=== PATIENT | female | born 1990 | race Hispanic/Latino ===

== ENCOUNTER 2017-02-11 13:53 | Emergency (ER) | payer BC, MEDICAID, OTHER ==
[2017-02-11 13:54] VITALS: BMI 26.6
[2017-02-11 14:15] VITALS: BP 102/71; PULSE 93; O2SAT 98
[2017-02-11 14:18] VITALS: RESP 18
[2017-02-11 15:10] VITALS: TEMP 98.3
--- NOTE | 2017-02-11 15:10 | ED PDOC ---
Arrival/HPI - General Chief Complaint: Cough, Cold, Congestion Time Seen by Provider: 02/11/17 14:37 Historian: Patient - History of Present Illness Narrative History of Present Illness (Text): 02/11/17 15:16 Patient reports one week history of cough, cold symptoms, body aches, tactile fever. Otherwise: (-) SOB, (-) chest pain, (-) N/V/D, (-) abdominal pain, (-) flank pain, (-) urinary symptoms, (-) recent travel, (-) sick contacts. PMD none Past Medical History - Provider Review Nursing Documentation Reviewed: Yes - Infectious Disease Hx of Infectious Diseases: None - Tetanus Immunization Tetanus Immunization: Unknown - Cardiac Hx Cardiac Disorders: Yes Other/Comment: " PER MY AUNT MY HEART DOESN'T PUMP BACK TO MY HEART" - Pulmonary Hx Tuberculosis: No - Neurological HX Cerebrovascular Accident: No - Hematological/Oncological Hx Cancer: No - Psychiatric Hx Depression: Yes Hx Substance Use: No - Anesthesia Hx Anesthesia: No Hx Anesthesia Reactions: No Hx Malignant Hyperthermia: No - Suicidal Assessment Feels Threatened In Home Enviroment: No Family/Social History - Physician Review Nursing Documentation Reviewed: Yes Family/Social History: No Known Family HX Smoking Status: Heavy Smoker > 10 Cigarettes Daily Hx Alcohol Use: No Hx Substance Use: No Allergies/Home Meds Allergies/Adverse Reactions: Allergies No Known Allergies Allergy (Verified 02/11/17 14:15) Review of Systems - Review of Systems Constitutional: Normal, Fatigue, Fevers. absent: Weight Change ENT: Normal. absent: Hearing Changes, Tinnitus Respiratory: Normal, Cough. absent: SOB Cardiovascular: Normal. absent: Chest Pain, Palpitations Musculoskeletal: Normal. absent: Arthralgias, Back Pain Skin: Normal. absent: Rash, Pruritis Physical Exam - Physical Exam Narrative Physical Exam (Text): 02/11/17 15:17 GENERAL APPEARANCE: Patient is awake, alert, oriented x 3, in no acute distress. SKIN: Warm, dry; (-) cyanosis, (-) rash. (-) Decubitus Ulcer EYES: (-) conjunctival pallor, (-) scleral icterus, (-) conjunctival hemorrhage. ENMT: Mucous membranes moist. TMs: (-) erythema. Airway patent: (-) stridor. Pharynx: (-) erythema, (-) exudate. NECK: (-) tenderness, (-) stiffness, (-) meningismus, (-) lymphadenopathy. CHEST AND RESPIRATORY: (-) accessory muscle use. Lungs: (-) rales, (-) rhonchi, (-) wheezes, (-) rub; breath sounds equal bilaterally. HEART AND CARDIOVASCULAR: (-) irregularity; (-) murmur, (-) gallop, (-) rub. ABDOMEN AND GI: Soft; (-) tenderness, (-) guarding; (-) organomegaly; (-) mass ; (-) CVA tenderness. EXTREMITIES: (-) deformity; (-) cellulitis, (-) lymphangitis; (-) subungual hemorrhage; (-) edema. NEURO AND PSYCH: Mental status as above; (-) focal findings. Vital Signs Temp Pulse Resp BP Pulse Ox 02/11/17 15:07 98.3 F 02/11/17 14:17 98.2 F 93 H 18 102/71 98 02/11/17 14:09 98.2 F 93 H 19 102/71 98 Medical Decision Making ED Course and Treatment: 02/11/17 15:06 26 yo F presents with 1 week h/o cough, bodyaches, cold symptoms, likely flu. PE normal. Based on history and exam, plan will be for outpatient follow-up. Prescription provided. Patient states she fully agrees with and understands discharge instructions. States that she agrees with the plan and disposition. Verbalized and repeated discharge instructions and plan. I have given the patient opportunity to ask any additional questions. Follow up with referral physician in 1-2 days without fail. Advised to take medication as prescribed. Return to the emergency room at any time for any new or worsening symptoms. - PA / FISHER LAMPARA NET / Resident Statement MD/DO has reviewed & agrees with the documentation as recorded. Disposition/Present on Arrival - Present on Arrival Any Indicators Present on Arrival: No History of DVT/PE: No History of Uncontrolled Diabetes: No Urinary Catheter: No History of Decub. Ulcer: No History Surgical Site Infection Following: None - Disposition Have Diagnosis and Disposition been Completed?: Yes Diagnosis: Viral illness Disposition: HOME/ ROUTINE Disposition Time: 15:00 Patient Plan: Discharge Condition: GOOD Discharge Instructions (ExitCare): Viral Syndrome (ED) Print Language: WELSH Additional Instructions: Thank you for letting us take care of you today. You were treated for viral illness likely flu. The emergency medical care you received today was directed at your acute symptoms. If you were prescribed any medication, please fill it and take as directed. It may take several days for your symptoms to resolve. Return to the Emergency Department if your symptoms worsen, do not improve, or if you have any other problems. Please contact referral doctor provided in 2 days for re-evaluation and follow up. Bring any paperwork you were given at discharge with you along with any medications you are taking to your follow up visit. Our treatment cannot replace ongoing medical care by a primary care provider (PCP) outside of the emergency department. Thank you for allowing the [facility] team to be part of your care today. Prescriptions: Guaifenesin [Cough Control] 400 mg PO Q6 #400 liquid Ibuprofen [Motrin] 600 mg PO Q6H #20 tab Referrals: PCP,HAYDEE [Primary Care Provider] - Follow up with primary Marielena Muse MD [Staff Provider] - Follow up with primary Forms: WORK NOTE
== END 2017-02-11 15:13 | disposition home or self-care (01) ==
LOC: ED 13:53
DX: B34.9 Viral infection, unspecified (principal); F17.210 Nicotine dependence, cigarettes, uncomplicated

== ENCOUNTER 2017-02-14 14:58 | Emergency (ER) | payer SELFPAY ==
[2017-02-14 15:18] VITALS: TEMP 98; BMI 20.9
[2017-02-14] MEDS ORDERED: Sodium Chloride 0.9% 1,000 ML IV STA (16:17)
--- NOTE | 2017-02-14 16:20 | ED PDOC ---
Arrival/HPI - General Chief Complaint: Syncope Time Seen by Provider: 02/14/17 15:06 Historian: Patient - History of Present Illness Narrative History of Present Illness (Text): 02/14/17 16:17 26 year old female who denies past medical history presents to the emergency department after syncopal episode at work prior to arrival. Patient states she was standing at work when she passed out, witnessed by coworker. She reports she was dizzy before coming to work today. She also reports recent body aches over the past week which are improving. She says she has had a cough during that time which is persisting. Denies nausea, vomiting, chest pain, shortness of breath, abdominal pain, focal weakness, or urinary changes. Time/Duration: Prior to Arrival Symptom Onset: Sudden Symptom Course: Resolved Modifying Factors (Text): None Associated Symptoms (Text): None Past Medical History - Provider Review Nursing Documentation Reviewed: Yes - Infectious Disease Hx of Infectious Diseases: None - Tetanus Immunization Tetanus Immunization: Unknown - Cardiac Hx Cardiac Disorders: Yes Other/Comment: " PER MY AUNT MY HEART DOESN'T PUMP BACK TO MY HEART" - Pulmonary Hx Tuberculosis: No - Neurological HX Cerebrovascular Accident: No - Hematological/Oncological Hx Cancer: No - Psychiatric Hx Depression: Yes Hx Substance Use: No - Anesthesia Hx Anesthesia: No Hx Anesthesia Reactions: No Hx Malignant Hyperthermia: No - Suicidal Assessment Feels Threatened In Home Enviroment: No Family/Social History - Physician Review Nursing Documentation Reviewed: Yes Family/Social History: Unknown Family HX Smoking Status: Heavy Smoker > 10 Cigarettes Daily Hx Alcohol Use: No Hx Substance Use: No Allergies/Home Meds Allergies/Adverse Reactions: Allergies No Known Allergies Allergy (Verified 02/14/17 15:21) Review of Systems - Physician Review All systems were reviewed & negative as marked: Yes - Review of Systems Eyes: absent: Vision Changes ENT: absent: Hearing Changes Respiratory: Cough. absent: SOB Cardiovascular: Syncope. absent: Chest Pain Gastrointestinal: absent: Abdominal Pain, Diarrhea, Nausea, Vomiting Genitourinary Female: absent: Dysuria, Frequency, Hematuria Musculoskeletal: absent: Back Pain Skin: absent: Rash Neurological: absent: Dizziness, Focal Weakness Endocrine: absent: Diaphoresis Psychiatric: absent: Depression Physical Exam Vital Signs Reviewed: Yes Vital Signs Temp Pulse Resp BP Pulse Ox 02/14/17 17:12 94 H 24 106/69 100 02/14/17 16:12 76 18 116/69 100 02/14/17 15:17 98.0 F 83 18 118/77 100 Temperature: Afebrile Blood Pressure: Normal Pulse: Regular Respiratory Rate: Normal Appearance: Positive for: Well-Appearing, Non-Toxic, Comfortable Pain Distress: None Mental Status: Positive for: Alert and Oriented X 3 - Systems Exam Head: Present: Atraumatic, Normocephalic Pupils: Present: PERRL Extroacular Muscles: Present: EOMI Conjunctiva: Present: Normal Mouth: Present: Moist Mucous Membranes Pharnyx: Present: Normal. No: ERYTHEMA, EXUDATE Neck: Present: Normal Range of Motion Respiratory/Chest: Present: Clear to Auscultation, Good Air Exchange. No: Respiratory Distress, Accessory Muscle Use Cardiovascular: Present: Regular Rate and Rhythm, Normal S1, S2. No: Murmurs Abdomen: Present: Normal Bowel Sounds. No: Tenderness, Distention, Peritoneal Signs Back: Present: Normal Inspection Upper Extremity: Present: Normal Inspection. No: Cyanosis, Edema Lower Extremity: Present: Normal Inspection. No: Edema Neurological: Present: GCS=15, CN II-XII Intact, Speech Normal, Motor Func Grossly Intact, Normal Sensory Function, Normal Cerebellar Funct, Norm Deep Tendon Reflexes, Memory Normal, Normal 2Pt Descrimination Skin: Present: Warm, Dry, Normal Color. No: Rashes Psychiatric: Present: Alert, Oriented x 3, Normal Insight, Normal Concentration Medical Decision Making ED Course and Treatment: Impression: 26 year old female who denies past medical history presents to the emergency department after syncopal episode at work prior to arrival. Differential Diagnosis included but are not limited to: Dehydration vs vasovagal vs less likely cardiogenic Plan: -- Labs -- IV fluids -- Reassess and disposition Prior Visits: Notes and results from previous visits were reviewed. Patient last seen in the ED on 02/11/17 for cold symptoms and discharged home. Progress Notes: Exam, vitals, and EKG are unremarkable. Labs with mild leukcytosis but no focalities. Will d/c home to f/u in the medical clinic. Will place on z-pack, given persistent cough - for bronchitis. - Lab Interpretations Lab Results: 02/14/17 16:30 02/14/17 16:30 Lab Results 02/14/17 16:30: WBC 12.6 H, RBC 4.37, Hgb 14.4, Hct 41.4, MCV 94.7, MCH 33.0, MCHC 34.8, RDW 12.9, Plt Count 330, MPV 9.3, Gran % 82.4 H, Lymph % (Auto) 13.2 L, [place] % (Auto) 4.0, Eos % (Auto) 0.2 L, Baso % (Auto) 0.2, Gran # 10.41 H, Lymph # 1.7, [place] # 0.5, Eos # 0.0, Baso # 0.03, Sodium 138, Potassium 4.3, Chloride 100, Carbon Dioxide 29, Anion Gap 13, BUN 12, Creatinine 0.7, Est GFR ( Amer) > 60, Est GFR (Non-Af Amer) > 60, Random Glucose 90, Calcium 9.6, Total Bilirubin 0.9, AST 29, ALT 28, Alkaline Phosphatase 59, Total Protein 8.3 , Albumin 4.6, Globulin 3.7, Albumin/Globulin Ratio 1.2, Lipase 72 02/14/17 16:15: Urine Color Yellow, Urine Appearance Sl cloudy, Urine pH 6.0, Ur Specific [place] >= 1.030, Urine Protein 30 H, Urine Glucose (UA) Negative, Urine Ketones Negative, Urine Blood Large H, Urine Nitrate Negative, Urine Bilirubin Negative, Urine Urobilinogen 0.2, Ur Leukocyte Esterase Negative, Urine RBC 20 - 25, Urine WBC 1 - 3, Ur Epithelial Cells 6 - 8, Amorphous Sediment Few, Urine Bacteria Mod, Urine HCG, Qual Negative 02/14/17 16:02: POC Glucose (mg/dL) 87 - EKG Interpretation EKG Interpretation (Text): EKG shows NSR at [address]/T changes, normal intervals, normal axis. Interpreted by ED Physician: Yes Type: 12 lead EKG - Medication Orders Current Medication Orders: Discontinued Medications Sodium Chloride (Sodium Chloride 0.9%) 1,000 mls @ 999 mls/hr IV .Q1H1M STA Stop: 02/14/17 17:17 Last Admin: 02/14/17 16:34 Dose: 999 MLS/HR eMAR Start Stop Document 02/14/17 16:34 MMA (Rec: 02/14/17 16:34 [facility] [id number]) Intravenous Solution Start Date 02/14/17 Start Time 16:34 End Date 02/14/17 End time 17:34 Total Infusion Time 60 - Scribe Statement The provider has reviewed the documentation as recorded by the Gulshan Mendoza Provider Scribe Attestation: All medical record entries made by the Scribe were at my direction and personally dictated by me. I have reviewed the chart and agree that the record accurately reflects my personal performance of the history, physical exam, medical decision making, and the department course for this patient. I have also personally directed, reviewed, and agree with the discharge instructions and disposition. Disposition/Present on Arrival - Present on Arrival Any Indicators Present on Arrival: No History of DVT/PE: No History of Uncontrolled Diabetes: No Urinary Catheter: No History of Decub. Ulcer: No History Surgical Site Infection Following: None - Disposition Have Diagnosis and Disposition been Completed?: Yes Diagnosis: Syncope, Bronchitis Disposition: HOME/ ROUTINE Disposition Time: 18:15 Patient Plan: Discharge Patient Problems: Current Active Problems Problem Status Diagnosed Syncope Acute Condition: GOOD Discharge Instructions (ExitCare): Syncope (ED), Acute Bronchitis (ED) Additional Instructions: Drink plenty of fluids. Follow up with the medical clinic. Return to the emergency department if any new concerning symptoms. Prescriptions: Azithromycin [Zithromax] 2 tab PO DAILY #6 tab Referrals: [facility] [place] [Outside] - Follow up with primary Forms: WORK NOTE
[2017-02-14 16:26] LABS: URINE BILIRUBIN NEGATIVE (NEGATIVE); URINE BLOOD LARGE (NEGATIVE); URINE GLUCOSE (UA) NEGATIVE (NEGATIVE); URINE KETONE NEGATIVE (NEGATIVE); URINE LEUKOCYTE ESTERASE NEGATIVE Leu/uL (NEGATIVE); URINE PROTEIN 30 mg/dL (<30 mg/dL); URINE UROBILINOGEN 0.2 E.U./dL (<1 E.U./dL)
[2017-02-14 16:27] LABS: URINE COLOR YELLOW (YELLOW)
[2017-02-14 16:28] LABS: URINE APPEARANCE SL CLOUDY (CLEAR)
[2017-02-14 16:46] LABS: URINE BACTERIA MOD (NEG); URINE RBC 20 - 25 /hpf (0-2)
[2017-02-14 16:47] LABS: URINE AMORPHOUS SEDIMENT FEW
[2017-02-14 16:49] LABS: ADD MANUAL DIFF? NO
[2017-02-14 16:52] LABS: BASO # 0.03 K/mm3 (0.0-2.0); BASO % 0.2 % (0.0-3.0); EOS % 0.2 % (1.5-5.0); GRAN # 10.41 (1.4-6.5); GRAN % 82.4 % (50.0-68.0); HEMATOCRIT 41.4 % (36.0-48.0); LYMPH # 1.7 (1.2-3.4); LYMPH % 13.2 % (22.0-35.0); MEAN CELL VOLUME 94.7 fL (80.0-105.0); MEAN CORPUSCULAR HGB CONC 34.8 g/dl (31.0-37.0); MEAN PLATELET VOLUME 9.3 fl (7.0-11.0); MONO # 0.5 (0.1-0.6); PLATELET COUNT 330 10^3/uL (120.0-450.0); RED CELL DISTRIBUTION WIDTH 12.9 % (11.5-14.5); WHITE BLOOD COUNT 12.6 10^3/ul (4.5-11.0)
[2017-02-14 17:02] LABS: ALB/GLOB RATIO 1.2 (1.1-1.8); ALKALINE PHOSPHATASE 59 U/L (38-133); ALT/SGPT 28 U/L (7-56); AST/SGOT 29 U/L (15-39); BILIRUBIN,TOTAL 0.9 mg/dL (0.2-1.3); BLOOD UREA NITROGEN 12 mg/dL (7-21); CALCIUM 9.6 mg/dL (8.4-10.5); CARBON DIOXIDE 29 mmol/L (21-33); CHLORIDE 100 mmol/L (98-107); GFR AFRICAN-AMERICAN > 60; GLUCOSE,RANDOM 90 mg/dL (70-110); LIPASE 72 U/L (23-300); POTASSIUM 4.3 mmol/L (3.6-5.0); SODIUM 138 mmol/L (132-148); TOTAL PROTEIN 8.3 g/dL (5.8-8.3)
[2017-02-14 18:26] VITALS: BP 108/61; PULSE 88; RESP 16; O2SAT 99
--- NOTE | 2017-02-14 18:44 | CARD ---
APPROVED REPORT EKG Measurement Heart [id number] <Conclusion> Poor data quality, interpretation may be adversely affected Sinus rhythm with marked sinus arrhythmia Otherwise normal ECG
== END 2017-02-14 18:27 | disposition home or self-care (01) ==
LOC: ED 14:58
DX: J40 Bronchitis, not specified as acute or chronic (principal); R55 Syncope and collapse; F17.210 Nicotine dependence, cigarettes, uncomplicated
CPT/HCPCS: 80053; 81001; 82948; 83690; 84703; 85025; 93005; 96360; 99285; J7040

== ENCOUNTER 2017-02-18 15:52 | Emergency (ER) | payer MEDICAID ==
[2017-02-18 15:53] VITALS: BMI 20.9
--- NOTE | 2017-02-18 16:20 | ED PDOC ---
Arrival/HPI - General Chief Complaint: Dizziness/Lightheaded Time Seen by Provider: 02/18/17 16:07 Historian: Patient - History of Present Illness Narrative History of Present Illness (Text): 02/18/17 16:24 26 year old female who denies past medical history presents to the emergency department with near syncopal episode while at work today. Denies other complaints at this time. Time/Duration: 24 hours Symptom Onset: Gradual Symptom Course: Unchanged Modifying Factors (Text): None Associated Symptoms (Text): None Past Medical History - Provider Review Nursing Documentation Reviewed: Yes - Infectious Disease Hx of Infectious Diseases: None - Tetanus Immunization Tetanus Immunization: Unknown - Cardiac Hx Cardiac Disorders: No - Pulmonary Hx Respiratory Disorders: No Hx Tuberculosis: No - Neurological Hx Neurological Disorder: Yes HX Cerebrovascular Accident: No Hx Syncope: Yes - HEENT Hx HEENT Disorder: No - Renal Hx Renal Disorder: No - Endocrine/Metabolic Hx Endocrine Disorders: No - Hematological/Oncological Hx Blood Disorders: No Hx Cancer: No - Integumentary Hx Dermatological Disorder: No - Musculoskeletal/Rheumatological Hx Musculoskeletal Disorders: No - Gastrointestinal Hx Gastrointestinal Disorders: No - Genitourinary/Gynecological Hx Genitourinary Disorders: No - Psychiatric Hx Psychophysiologic Disorder: Yes Hx Depression: Yes Hx Substance Use: No - Anesthesia Hx Anesthesia: No Hx Anesthesia Reactions: No Hx Malignant Hyperthermia: No - Suicidal Assessment Feels Threatened In Home Enviroment: No Family/Social History - Physician Review Nursing Documentation Reviewed: Yes Family/Social History: Unknown Family HX Smoking Status: Heavy Smoker > 10 Cigarettes Daily Hx Alcohol Use: No Hx Substance Use: No Allergies/Home Meds Allergies/Adverse Reactions: Allergies FISH Allergy (Verified 02/18/17 16:11) ANAPHYLAXIS Home Medications: Home Meds Medication Instructions Recorded Confirmed No Known Home Med 02/18/17 02/18/17 Review of Systems - Physician Review All systems were reviewed & negative as marked: Yes Physical Exam - Physical Exam Narrative Physical Exam (Text): - Review of Systems Constitutional: Normal. absent: Fatigue, Weight Change, Fevers Eyes: Normal ENT: Normal Respiratory: Normal absent: SOB, Cough, Sputum Cardiovascular: Near Syncope absent: Chest pain, Palpitations Gastrointestinal: Normal absent: Abdominal pain, Diarrhea, Nausea, Vomiting Genitourinary: Normal. absent: Dysuria, Frequency, Hematuria Musculoskeletal: Normal. absent: Arthralgias, Back Pain, Neck Pain Skin: Normal Neurological: Normal absent: Focal Weakness Endocrine: Normal Hemo/Lymphatic: Normal Psychiatric: Normal - Physical exam Patient appears age appropriate, speaking full sentences without difficulty - Systems Exam Head: Present: Atraumatic, Normocephalic Pupils: Present: PERRL Extraocular Muscles: Present: EOMI Conjunctiva: Present: Normal Mouth: Present: Moist Mucous Membranes Neck: Present: Normal Range of Motion. No: MIDLINE TENDERNESS, Paraspinal Tenderness Respiratory/Chest: Present: Clear to Auscultation, Good Air Exchange. No: Respiratory Distress, Accessory Muscle Use, Tachypneic Cardiovascular: Present: Regular Rate and Rhythm, Normal S1, S2, Peripheral Pulses Present. No: Murmurs Abdomen: Present: Normal Bowel Sounds, No: Tenderness, Peritoneal Signs, Rebound, Guarding, Distention Back: Present: Normal Inspection. No: Midline Tenderness, Paraspinal Tenderness Upper Extremity: Present: Normal Inspection. No: Cyanosis, Edema Lower Extremity: Present: Normal Inspection. No: Edema Neurological: Present: GCS=15, Speech Normal, cranial nerves II through XII fully intact with no cerebellar abnormality, neuro-sensory fully intact. No focal neurological deficits. Skin: Present: Warm, Dry, Normal Color. No: Rashes Lymphatic: Present: OX3, NI, NC Psychiatric: Present: Alert, Oriented x 3, Normal Insight, Normal Concentration Vital Signs Reviewed: Yes Vital Signs Temp Pulse Resp BP Pulse Ox 02/18/17 19:11 98.6 F 81 18 114/63 100 02/18/17 16:11 99.2 F 89 15 113/70 99 Temperature: Afebrile Blood Pressure: Normal Pulse: Regular Respiratory Rate: Normal Appearance: Positive for: Well-Appearing, Non-Toxic, Comfortable Pain Distress: None Mental Status: Positive for: Alert and Oriented X 3 Finger Stick Blood Glucose: 86 - Systems Exam Neurological: Present: Motor Func Grossly Intact, Normal Sensory Function, Normal Cerebellar Funct, Norm Deep Tendon Reflexes Medical Decision Making ED Course and Treatment: Impression: 26 year old female who denies past medical history presents to the emergency department with near syncopal episode while at work today. On physical exam, patient has no acute findings. Differential Diagnosis include but are not limited to: near syncope, dehydration Plan: -- CT Head, EKG -- Labs -- Reassess and disposition Prior Visits: Notes and results from previous visits were reviewed. Patient last seen in the ED on 02/14/17 for syncope and discharged home. Progress Notes: Patient is aware that if there are no acute findings on workup in the ER, she will need to follow up with histology teacher and neurologist outpatient. EKG shows NSR at [address]-segment elevations, normal intervals. with no prior for comparison. Interpreted by me. EXAM: CT Head Without Intravenous Contrast IMPRESSION: Normal head/brain CT. Dictated and Authenticated by: Nicki Martinez MD 02/18/2017 6:09 PM Eastern Time ([place] & [place]) 02/18/17 19:17 On reevaluation, patient states that she feels much better, denies any complaints. Patient is ambulating in the emergency department with steady gait. Patient has no focal neurological deficits on reexamination. Patient states that she felt comfortable being discharged home with outpatient follow-up. Pt states she understands to return to the ER right away for new or worsening symptoms or for inability to f/u with PMD or specialist as instructed. Patient states that she fully agrees with and understands discharge instructions. States that she agrees with the plan and disposition. Verbalized and repeated discharge instructions and plan. I have given the patient opportunity to ask any additional questions. - Lab Interpretations Lab Results: 02/18/17 16:32 02/18/17 16:32 Lab Results 02/18/17 16:32: WBC 9.5 D, RBC 4.09, Hgb 13.6, Hct 38.7, MCV 94.6, MCH 33.3, MCHC 35.1, RDW 12.9, Plt Count 323, MPV 9.4, Gran % 68.4 H, Lymph % (Auto) 25.0 , [place] % (Auto) 5.6, Eos % (Auto) 0.6 L, Baso % (Auto) 0.4, Gran # 6.48, Lymph # 2.4, [place] # 0.5, Eos # 0.1, Baso # 0.04, Sodium 137, Potassium 4.1, Chloride 100, Carbon Dioxide 29, Anion Gap 12, BUN 14, Creatinine 0.7, Est GFR ( Amer) > 60, Est GFR (Non-Af Amer) > 60, Random Glucose 86, Calcium 9.2, Total Bilirubin 0.8, AST 24, ALT 32, Alkaline Phosphatase 58, Total Protein 7.6, Albumin 4.3, Globulin 3.4, Albumin/Globulin Ratio 1.3 - RAD Interpretation Radiology Orders: 02/18/17 16:24 HEAD W/O CONTRAST [CT] Stat Sales Professional: Radiologist - EKG Interpretation Interpreted by ED Physician: Yes Type: 12 lead EKG - Medication Orders Current Medication Orders: Discontinued Medications Sodium Chloride (Sodium Chloride 0.9%) 1,000 mls @ 1,000 mls/hr IV .Q1H STA Stop: 02/18/17 17:23 Last Admin: 02/18/17 16:33 Dose: 1,000 MLS/HR eMAR Start Stop Document 02/18/17 16:33 SE (Rec: 02/18/17 16:33 SE [id number]) Intravenous Solution Start Date 02/18/17 Start Time 16:33 - Scribe Statement The provider has reviewed the documentation as recorded by the Gulshan Mendoza Provider Scribe Attestation: All medical record entries made by the Gulshan were at my direction and personally dictated by me. I have reviewed the chart and agree that the record accurately reflects my personal performance of the history, physical exam, medical decision making, and the department course for this patient. I have also personally directed, reviewed, and agree with the discharge instructions and disposition. Disposition/Present on Arrival - Present on Arrival Any Indicators Present on Arrival: No History of DVT/PE: No History of Uncontrolled Diabetes: No Urinary Catheter: No History of Decub. Ulcer: No History Surgical Site Infection Following: None - Disposition Have Diagnosis and Disposition been Completed?: Yes Diagnosis: Near syncope Disposition: HOME/ ROUTINE Disposition Time: 19:23 Patient Plan: Discharge Condition: GOOD Discharge Instructions (ExitCare): Near Syncope (ED) Additional Instructions: PLEASE RETURN TO THE EMERGENCY DEPARTMENT FOR NEW OR WORSENING SYMPTOMS. RETURN RIGHT AWAY IF YOU CANNOT FOLLOW UP WITH YOUR PRIMARY CARE DOCTOR, CLINIC, OR SPECIALIST IN 1-2 DAYS. Referrals: PCP,NO [Primary Care Provider] - Follow up with primary Mendez Flynn MD [Staff Provider] - Follow up with primary Gema Lew MD [Staff Provider] - Follow up with primary
[2017-02-18] MEDS ORDERED: Sodium Chloride 0.9% 1,000 ML IV STA (16:24)
[2017-02-18 16:38] LABS: ADD MANUAL DIFF? NO
[2017-02-18 16:41] LABS: BASO # 0.04 K/mm3 (0.0-2.0); BASO % 0.4 % (0.0-3.0); EOS # 0.1 (0.0-0.7); EOS % 0.6 % (1.5-5.0); GRAN # 6.48 (1.4-6.5); GRAN % 68.4 % (50.0-68.0); HEMATOCRIT 38.7 % (36.0-48.0); LYMPH # 2.4 (1.2-3.4); MEAN CELL VOLUME 94.6 fL (80.0-105.0); MEAN CORPUSCULAR HEMOGLOBIN 33.3 pg (25.0-35.0); MEAN CORPUSCULAR HGB CONC 35.1 g/dl (31.0-37.0); MEAN PLATELET VOLUME 9.4 fl (7.0-11.0); MONO # 0.5 (0.1-0.6); MONO % 5.6 % (1.0-6.0); PLATELET COUNT 323 10^3/uL (120.0-450.0); RED CELL DISTRIBUTION WIDTH 12.9 % (11.5-14.5); WHITE BLOOD COUNT 9.5 10^3/ul (4.5-11.0)
[2017-02-18 16:53] LABS: ALB/GLOB RATIO 1.3 (1.1-1.8); ALKALINE PHOSPHATASE 58 U/L (38-133); ALT/SGPT 32 U/L (7-56); AST/SGOT 24 U/L (15-39); BILIRUBIN,TOTAL 0.8 mg/dL (0.2-1.3); BLOOD UREA NITROGEN 14 mg/dL (7-21); CALCIUM 9.2 mg/dL (8.4-10.5); CARBON DIOXIDE 29 mmol/L (21-33); CHLORIDE 100 mmol/L (98-107); GFR AFRICAN-AMERICAN > 60; GLUCOSE,RANDOM 86 mg/dL (70-110); POTASSIUM 4.1 mmol/L (3.6-5.0); SODIUM 137 mmol/L (132-148); TOTAL PROTEIN 7.6 g/dL (5.8-8.3)
[2017-02-18 19:13] VITALS: BP 114/63; PULSE 81; RESP 18; TEMP 98.6; O2SAT 100
--- NOTE | 2017-02-19 08:25 | CT ---
PROCEDURE: CT HEAD WITHOUT CONTRAST. HISTORY: near syncope COMPARISON: None available. TECHNIQUE: Axial computed tomography images were obtained through the head/brain without intravenous contrast. Radiation dose: Total exam DLP = 725 mGy-cm. This CT exam was performed using one or more of the following dose reduction techniques: Automated exposure control, adjustment of the mA and/or kV according to patient size, and/or use of iterative reconstruction technique. FINDINGS: HEMORRHAGE: No intracranial hemorrhage. BRAIN: No mass effect or edema. No atrophy or chronic microvascular ischemic changes. VENTRICLES: Unremarkable. No hydrocephalus. CALVARIUM: Unremarkable. PARANASAL SINUSES: Unremarkable as visualized. No significant inflammatory changes. MASTOID AIR CELLS: Unremarkable as visualized. No inflammatory changes. OTHER FINDINGS: The report concurs with the preliminary [facility] report IMPRESSION: Normal CT of the Head.
--- NOTE | 2017-02-19 12:18 | CARD ---
APPROVED REPORT EKG Measurement Heart [id number] HI 140P29 [id number] <Conclusion> Normal sinus rhythm Rightward axis Borderline ECG
== END 2017-02-18 19:45 | disposition home or self-care (01) ==
LOC: ED 15:52
DX: R55 Syncope and collapse (principal)
CPT/HCPCS: 70450; 80053; 82948; 85025; 93005; 99285; J7040

== ENCOUNTER 2017-03-10 17:35 | Emergency (ER) | payer MEDICAID ==
[2017-03-10 17:35] VITALS: BMI 20.9
[2017-03-10 17:46] VITALS: BP 104/74; PULSE 100; RESP 16; O2SAT 98
--- NOTE | 2017-03-10 17:59 | ED PDOC ---
Arrival/HPI - General Historian: Patient - General Chief Complaint: Upper Extremity Problem/Injury Time Seen by Provider: 03/10/17 17:46 - History of Present Illness Narrative History of Present Illness (Text): 03/10/17 17:56 26yo female who present with 3days history of right shoulder pain. States pain is only on abduction of her right arm. Did not take any pain. Denies trauma, chest pain, paresthesia, focal weakness, any other complaint. (Salina Vasquez) Past Medical History - Provider Review Nursing Documentation Reviewed: Yes - Infectious Disease Hx of Infectious Diseases: None - Tetanus Immunization Tetanus Immunization: Unknown - Reproductive Menopause: No - Cardiac Hx Cardiac Disorders: No - Pulmonary Hx Respiratory Disorders: No Hx Tuberculosis: No - Neurological Hx Neurological Disorder: Yes HX Cerebrovascular Accident: No Hx Syncope: Yes - HEENT Hx HEENT Disorder: No - Renal Hx Renal Disorder: No - Endocrine/Metabolic Hx Endocrine Disorders: No - Hematological/Oncological Hx Blood Disorders: No Hx Cancer: No - Integumentary Hx Dermatological Disorder: No - Musculoskeletal/Rheumatological Hx Musculoskeletal Disorders: No - Gastrointestinal Hx Gastrointestinal Disorders: No - Genitourinary/Gynecological Hx Genitourinary Disorders: No - Psychiatric Hx Psychophysiologic Disorder: Yes Hx Depression: Yes Hx Substance Use: No - Anesthesia Hx Anesthesia: No Hx Anesthesia Reactions: No Hx Malignant Hyperthermia: No - Suicidal Assessment Feels Threatened In Home Enviroment: No Family/Social History - Physician Review Nursing Documentation Reviewed: Yes Family/Social History: Unknown Family HX Smoking Status: Heavy Smoker > 10 Cigarettes Daily Hx Alcohol Use: No Hx Substance Use: No Allergies/Home Meds Allergies/Adverse Reactions: Allergies FISH Allergy (Verified 03/10/17 17:46) ANAPHYLAXIS Review of Systems - Physician Review All systems were reviewed & negative as marked: Yes - Review of Systems Constitutional: Normal Eyes: Normal ENT: Normal Respiratory: Normal Cardiovascular: Normal Gastrointestinal: Normal Genitourinary Female: Normal Musculoskeletal: Arthralgias (Right shoulder pain) Skin: Normal Neurological: Normal Endocrine: Normal Hemo/Lymphatic: Normal Psychiatric: Normal Physical Exam Vital Signs Reviewed: Yes Temperature: Afebrile Blood Pressure: Normal Pulse: Regular Respiratory Rate: Normal Appearance: Positive for: Well-Appearing, Non-Toxic, Comfortable Pain Distress: None Mental Status: Positive for: Alert and Oriented X 3 - Systems Exam Head: Present: Atraumatic, Normocephalic Pupils: Present: PERRL Extroacular Muscles: Present: EOMI Conjunctiva: Present: Normal Mouth: Present: Moist Mucous Membranes Neck: Present: Normal Range of Motion Respiratory/Chest: Present: Clear to Auscultation, Good Air Exchange. No: Respiratory Distress, Accessory Muscle Use Cardiovascular: Present: Regular Rate and Rhythm, Normal S1, S2. No: Murmurs Abdomen: Present: Normal Bowel Sounds. No: Tenderness, Distention, Peritoneal Signs Back: Present: Normal Inspection Upper Extremity: Present: Normal ROM (with pain on abduction of right arm up to 180degree), NORMAL PULSES, Tenderness (OVer the right anterior AC shoulder joint ), Neurovascularly Intact, Capillary Refill < 2s. No: Cyanosis, Edema, Swelling , Erythema, Temperature Abnormalties, Deformity Lower Extremity: Present: Normal Inspection. No: Edema Neurological: Present: GCS=15, CN II-XII Intact, Speech Normal Skin: Present: Warm, Dry, Normal Color. No: Rashes Psychiatric: Present: Alert, Oriented x 3, Normal Insight, Normal Concentration Vital Signs Temp Pulse Resp BP Pulse Ox 03/10/17 18:13 98.9 F 100 H 16 98 03/10/17 17:42 99.8 F H 100 H 16 104/74 98 Medical Decision Making ED Course and Treatment: 03/10/17 18:01 I was available for consultation during PA evaluation. The chart was reviewed by me, and I agree with disposition. The documented history was done by the physician medical billing associate. The documented physical exam was done by the physician medical billing associate. The documented procedures were done by the physician medical billing associate. ( Emeka Dow) 03/10/17 18:34 Rt shoulder xray - No acute finding Result was DW the pt. She was DC home with NSAID for MS pain. Referred to ortho. TRT ED for any new or worsening symptoms (Salina Vasquez A) - RAD Interpretation Radiology Orders: 03/10/17 17:56 SHOULDER RIGHT [RAD] Stat - Medication Orders Current Medication Orders: Discontinued Medications Ibuprofen (Motrin Tab) 600 mg PO STAT STA Stop: 03/10/17 17:57 Disposition/Present on Arrival - Present on Arrival Any Indicators Present on Arrival: No History of DVT/PE: No History of Uncontrolled Diabetes: No Urinary Catheter: No History of Decub. Ulcer: No History Surgical Site Infection Following: None - Disposition Have Diagnosis and Disposition been Completed?: Yes Disposition Time: 18:40 Patient Plan: Discharge - Disposition Diagnosis: Shoulder joint pain Disposition: HOME/ ROUTINE Condition: STABLE Discharge Instructions (ExitCare): Shoulder Pain (ED) Additional Instructions: Follow up with Orthopedist Return to ED for any new or worsening symptoms Prescriptions: Ibuprofen [Motrin Tab] 600 mg PO Q6 #20 tab Referrals: Lamin Casanova DO [Staff Provider] - Follow up with primary
[2017-03-10 18:14] VITALS: TEMP 98.9
--- NOTE | 2017-03-11 10:31 | RAD ---
PROCEDURE: Radiographs of the Right Shoulder HISTORY: shoulder pain COMPARISON: No prior. FINDINGS: BONES: Normal. No fracture. JOINTS: Normal. Glenohumeral and acromioclavicular joints preserved. No osteoarthritis. SOFT TISSUES: Normal. OTHER FINDINGS: None. IMPRESSION: Normal radiographs of the right shoulder.
== END 2017-03-10 18:55 | disposition home or self-care (01) ==
LOC: ED 17:35
DX: M25.511 Pain in right shoulder (principal); F17.210 Nicotine dependence, cigarettes, uncomplicated

== ENCOUNTER 2017-03-15 18:17 | Emergency (ER) | payer MEDICAID ==
[2017-03-15 18:17] VITALS: BMI 20.9
[2017-03-15 18:42] VITALS: TEMP 98.4
[2017-03-15] MEDS ORDERED: Sodium Chloride 0.9% 1,000 ML IV STA (19:08)
--- NOTE | 2017-03-15 19:13 | ED PDOC ---
Arrival/HPI <Diego Gruber - Last Filed: 03/15/17 20:55> - General Historian: Patient <Mohsen Cochran - Last Filed: 03/19/17 21:06> - General Chief Complaint: Syncope Time Seen by Provider: 03/15/17 18:59 - History of Present Illness Narrative History of Present Illness (Text): 03/15/17 19:15 26 y/o female, pmh including syncope, nkda, biba for syncope episode at work. Pt. stated that she has been feeling dizziness for the past half hour, feel dizziness and pass out while standing after she has been stressing out lately due to the problem with the father, been stressing out today as well, no chest pain or palpitation prior to syncope episode, no numbness or tingling, no urinary or bowel incontinence, no dizziness, no night sweat, no rash, no other medical or psychological complaints. (Mohsen Cochran) Past Medical History - Provider Review Nursing Documentation Reviewed: Yes - Infectious Disease Hx of Infectious Diseases: None - Tetanus Immunization Tetanus Immunization: Unknown - Cardiac Hx Cardiac Disorders: No - Pulmonary Hx Respiratory Disorders: No Hx Tuberculosis: No - Neurological Hx Neurological Disorder: Yes HX Cerebrovascular Accident: No Hx Syncope: Yes - HEENT Hx HEENT Disorder: No - Renal Hx Renal Disorder: No - Endocrine/Metabolic Hx Endocrine Disorders: No - Hematological/Oncological Hx Blood Disorders: No Hx Cancer: No - Integumentary Hx Dermatological Disorder: No - Musculoskeletal/Rheumatological Hx Musculoskeletal Disorders: No - Gastrointestinal Hx Gastrointestinal Disorders: No - Genitourinary/Gynecological Hx Genitourinary Disorders: No - Psychiatric Hx Psychophysiologic Disorder: Yes Hx Depression: Yes Hx Substance Use: No - Anesthesia Hx Anesthesia: No Hx Anesthesia Reactions: No Hx Malignant Hyperthermia: No - Suicidal Assessment Feels Threatened In Home Enviroment: No <Mohsen Cochran - Last Filed: 03/19/17 21:06> Family/Social History - Physician Review Nursing Documentation Reviewed: Yes Family/Social History: Unknown Family HX Smoking Status: Heavy Smoker > 10 Cigarettes Daily Hx Alcohol Use: No Hx Substance Use: No <Mohsen Cochran - Last Filed: 03/19/17 21:06> Allergies/Home Meds <Diego Gruber - Last Filed: 03/15/17 20:55> <Cochran,Mohsen Q - Last Filed: 03/19/17 21:06> Allergies/Adverse Reactions: Allergies FISH Allergy (Verified 03/15/17 18:42) ANAPHYLAXIS Home Medications: Home Meds Medication Instructions Recorded Confirmed No Known Home Med 03/15/17 03/15/17 Review of Systems - Physician Review All systems were reviewed & negative as marked: Yes - Review of Systems Constitutional: absent: Fatigue, Fevers ENT: absent: Voice Changes, Sore Throat, Rhinorrhea Respiratory: absent: Cough, Sputum Cardiovascular: absent: Chest Pain Gastrointestinal: absent: Abdominal Pain, Diarrhea, Nausea, Vomiting Musculoskeletal: absent: Arthralgias, Back Pain, Myalgias Skin: absent: Rash, Pruritis, Ulcer Neurological: absent: Headache, Dizziness, Focal Weakness, Gait Changes Hemo/Lymphatic: absent: Adenopathy Psychiatric: absent: Anxiety, Depression, Suicidal Ideation <Mohsen Cochran Q - Last Filed: 03/19/17 21:06> Physical Exam Vital Signs Reviewed: Yes Temperature: Afebrile Pulse: Regular Respiratory Rate: Normal Appearance: Positive for: Well-Appearing, Non-Toxic, Comfortable Pain Distress: None Mental Status: Positive for: Alert and Oriented X 3 - Systems Exam Head: Present: Atraumatic, Normocephalic. No: Tenderness, Contusion, Swelling, Ecchymosis, Abrasion, Laceration Pupils: Present: PERRL Extroacular Muscles: Present: EOMI Conjunctiva: Present: Normal Ears: Present: NORMAL TM, Normal Canal. No: Erythema Mouth: Present: Moist Mucous Membranes, Normal Lips, Normal Tounge, Normal Teeth. No: Drooling, Trismus Pharnyx: No: ERYTHEMA, EXUDATE, TONSILS ENLARGED, Uvular Deviation, Soft Palate/ Uvular Edema Nose (External): Present: Atraumatic. No: Abrasion, Contusion, Laceration Nose (Internal): Present: Normal Inspection, No Active Bleeding. No: Rhinorrhea , Septal Hematoma, Epistaxis Neck: Present: Normal Range of Motion, Trachea Midline. No: Meningeal Signs, MIDLINE TENDERNESS, Paraspinal Tenderness, Lymphadenopathy Respiratory/Chest: Present: Clear to Auscultation, Good Air Exchange. No: Respiratory Distress, Accessory Muscle Use Cardiovascular: Present: Regular Rate and Rhythm, Normal S1, S2. No: Murmurs Abdomen: Present: Normal Bowel Sounds. No: Tenderness, Distention, Peritoneal Signs, Rebound, Guarding Back: Present: Normal Inspection. No: CVA Tenderness, Midline Tenderness, Paraspinal Tenderness Upper Extremity: Present: Normal Inspection, Normal ROM. No: Cyanosis, Edema, Deformity Lower Extremity: Present: Normal Inspection, Normal ROM. No: Edema, Deformity Neurological: Present: GCS=15, Speech Normal, Motor Func Grossly Intact, Gait Normal, Memory Normal, Other (normal finger to nose test, normal heel to howard test.) Skin: Present: Warm, Dry, Normal Color. No: Rashes Psychiatric: Present: Alert, Oriented x 3, Normal Insight, Normal Concentration <Mohsen Cochran - Last Filed: 03/19/17 21:06> Vital Signs Temp Pulse Resp BP Pulse Ox 03/15/17 21:30 79 17 120/70 100 03/15/17 18:41 98.4 F 83 16 109/54 L 98 Medical Decision Making <Diego Gruber - Last Filed: 03/15/17 20:55> - Lab Interpretations I have reviewed the lab results: Yes Interpretation: Abnormal lab values (wbc 13.5) - RAD Interpretation Nurses Director: Radiologist - EKG Interpretation Interpreted by ED Physician: Yes Type: 12 lead EKG Comparison: Com.w/previous EKG <Mohsen Cochran - Last Filed: 03/19/17 21:06> ED Course and Treatment: 03/15/17 19:11 -labs/ua/uds -ekg -chest xray -CT head -technical artist -IVF -observe and reassess 03/15/17 21:18 -EKG: NSR @ 75 BPM, no ST elevation or depression, no T wave inversion, compared with previous ekg. -CT head show no acute findings -Chest x-ray show no acute findings -Labs are non-significant -UA show no UTI -UDS show no acute findings -WBC is 13.5 with no fever or chills, likely stress induced. -Pt. is asymptomatic, feeling much better, request to be discharged home, refused to be admitted to the hospital for further evaluation. -I discussed with DR. Gruber about the case, he agreed that the patient can be discharge home. -Discharge home with education on stay hydrated, no gym or exercise, follow up with your own pmd and library attendant/neurologist within 2 days, return to the ER for any new or worsening signs or symptoms. (Mohsen Cochran) - Lab Interpretations Lab Results: 03/15/17 19:30 03/15/17 19:30 Lab Results 03/15/17 19:35: Urine Opiates Screen Negative, Urine Methadone Screen Negative, Ur Barbiturates Screen Negative, Ur Phencyclidine Scrn Negative, Ur Amphetamines Screen Negative, U Benzodiazepines Scrn Negative, U Oth Cocaine Metabols Negative, U Cannabinoids Screen Negative 03/15/17 19:35: Urine Color Yellow, Urine Appearance Sl cloudy, Urine pH 5.5, Ur Specific [place] >= 1.030, Urine Protein 30 H, Urine Glucose (UA) Negative, Urine Ketones Trace H, Urine Blood Large H, Urine Nitrate Negative, Urine Bilirubin Negative, Urine Urobilinogen 0.2, Ur Leukocyte Esterase Negative, Urine RBC 15 - 20, Urine WBC 2 - 5, Ur Epithelial Cells 4 - 5, Urine Bacteria Trace, Urine Other Mucus 03/15/17 19:30: Alcohol, Quantitative < 10 03/15/17 19:30: Sodium 138, Potassium 4.3, Chloride 101, Carbon Dioxide 26, Anion Gap 15, BUN 16, Creatinine 0.7, Est GFR ( Amer) > 60, Est GFR (Non- Af Amer) > 60, Random Glucose 88, Calcium 9.8, Magnesium 2.1, Total Bilirubin 0.8, AST 26, ALT 28, Alkaline Phosphatase 53, Total Protein 8.0, Albumin 4.6, Globulin 3.5, Albumin/Globulin Ratio 1.3 03/15/17 19:30: WBC 13.5 H D, RBC 4.14, Hgb 13.5, Hct 39.2, MCV 94.7, MCH 32.6, MCHC 34.4, RDW 13.0, Plt Count 288, MPV 9.7, Gran % 84.3 H, Lymph % (Auto) 11.7 L, [place] % (Auto) 3.6, Eos % (Auto) 0.1 L, Baso % (Auto) 0.3, Gran # 11.40 H, Lymph # 1.6, [place] # 0.5, Eos # 0.0, Baso # 0.04 - RAD Interpretation Radiology Orders: 03/15/17 19:08 HEAD W/O CONTRAST [CT] Stat CHEST PORTABLE [RAD] Stat CT Head: negative, compared with previous study. Chest x-ray: no active disease (Mohsen Cochran) - EKG Interpretation EKG Interpretation (Text): 03/15/17 19:17 NSR @ 75 BPM, no ST elevation or depression, no T wave inversion, compared with previous ekg. (Mohsen Cochran) - Medication Orders Current Medication Orders: Discontinued Medications Sodium Chloride (Sodium Chloride 0.9%) 1,000 mls @ 999 mls/hr IV .Q1H1M STA Stop: 03/15/17 20:08 Last Admin: 03/15/17 19:43 Dose: 999 mls/hr - PA / SCRAPER HAND / Resident Statement MD/DO has reviewed & agrees with the documentation as recorded. <Diego Gruber - Last Filed: 03/15/17 20:55> Disposition/Present on Arrival <Diego Gruber - Last Filed: 03/15/17 20:55> - Present on Arrival Any Indicators Present on Arrival: No History of DVT/PE: No History of Uncontrolled Diabetes: No Urinary Catheter: No History of Decub. Ulcer: No History Surgical Site Infection Following: None - Disposition Have Diagnosis and Disposition been Completed?: Yes Disposition Time: 21:24 Patient Plan: Discharge <Mohsen Cochran - Last Filed: 03/19/17 21:06> - Disposition Diagnosis: Syncope Disposition: HOME/ ROUTINE Condition: IMPROVED Discharge Instructions (ExitCare): Syncope (ED) Additional Instructions: Discharge home with education on stay hydrated, no gym or exercise, follow up with your own pmd and library attendant/neurologist within 2 days, return to the ER for any new or worsening signs or symptoms. Referrals: PCP,NO [Primary Care Provider] - Follow up with primary Chaz Zuluaga MD [Staff Provider] - Follow up with primary Patric Palomares MD [Staff Provider] - Follow up with primary [facility] [place] [Outside] - Follow up with primary Forms: WORK NOTE
[2017-03-15 19:39] LABS: ADD MANUAL DIFF? NO
[2017-03-15 19:52] LABS: ALB/GLOB RATIO 1.3 (1.1-1.8); ALKALINE PHOSPHATASE 53 U/L (38-133); ALT/SGPT 28 U/L (7-56); AST/SGOT 26 U/L (15-39); BILIRUBIN,TOTAL 0.8 mg/dL (0.2-1.3); BLOOD UREA NITROGEN 16 mg/dL (7-21); CALCIUM 9.8 mg/dL (8.4-10.5); CARBON DIOXIDE 26 mmol/L (21-33); CHLORIDE 101 mmol/L (95-110); GFR AFRICAN-AMERICAN > 60; GLUCOSE,RANDOM 88 mg/dL (70-110); MAGNESIUM 2.1 mg/dL (1.7-2.2); POTASSIUM 4.3 mmol/L (3.6-5.0); SODIUM 138 mmol/L (132-148)
[2017-03-15 19:54] LABS: PH,URINE 5.5 (4.7-8.0); URINE BILIRUBIN NEGATIVE (NEGATIVE); URINE BLOOD LARGE (NEGATIVE); URINE GLUCOSE (UA) NEGATIVE (NEGATIVE); URINE KETONE TRACE mg/dL (NEGATIVE); URINE LEUKOCYTE ESTERASE NEGATIVE Leu/uL (NEGATIVE); URINE PROTEIN 30 mg/dL (<30 mg/dL); URINE UROBILINOGEN 0.2 E.U./dL (<1 E.U./dL)
[2017-03-15 19:55] LABS: URINE APPEARANCE SL CLOUDY (CLEAR); URINE COLOR YELLOW (YELLOW)
[2017-03-15 19:57] LABS: URINE RBC 15 - 20 /hpf (0-2)
[2017-03-15 19:58] LABS: URINE BACTERIA TRACE (NEG)
[2017-03-15 20:08] LABS: BASO # 0.04 K/mm3 (0.0-2.0); BASO % 0.3 % (0.0-3.0); EOS % 0.1 % (1.5-5.0); GRAN % 84.3 % (50.0-68.0); HEMATOCRIT 39.2 % (36.0-48.0); LYMPH # 1.6 (1.2-3.4); LYMPH % 11.7 % (22.0-35.0); MEAN CELL VOLUME 94.7 fL (80.0-105.0); MEAN CORPUSCULAR HEMOGLOBIN 32.6 pg (25.0-35.0); MEAN CORPUSCULAR HGB CONC 34.4 g/dl (31.0-37.0); MEAN PLATELET VOLUME 9.7 fl (7.0-11.0); MONO # 0.5 (0.1-0.6); MONO % 3.6 % (1.0-6.0); PLATELET COUNT 288 10^3/uL (120.0-450.0); WHITE BLOOD COUNT 13.5 10^3/ul (4.5-11.0)
--- NOTE | 2017-03-15 21:09 | CT ---
EXAM: CT Head Without Intravenous Contrast CLINICAL HISTORY: 26 years old, female; Signs and symptoms; Other: Passed out; Additional info: Syncope TECHNIQUE: Axial computed tomography images of the head/brain without intravenous contrast. This CT exam was performed using one or more of the following dose reduction techniques: automated exposure control, adjustment of the mA and/or kV according to patient size, and/or use of iterative reconstruction technique. EXAM DATE/TIME: 03/15/2017 7:08 PM COMPARISON: CT - HEAD W/O CONTRAST 02/18/2017 5:51:17 PM FINDINGS: Brain: Ventricles are normal in size and configuration. There is no midline shift. There are no intra-axial or extra-axial mass lesions or areas of hemorrhage. There are no abnormal fluid collections. Mace-white differentiation is maintained. Ventricles: See above. Bones: Cranial vault is intact. Soft tissues: unremarkable Sinuses: There is no acute sinusitis. Ears and mastoids: Middle ears and mastoids are unremarkable Orbits: Orbital contents are unremarkable. IMPRESSION: Negative, no change compared to the prior study
[2017-03-15 21:35] VITALS: BP 120/70; PULSE 79; RESP 17; O2SAT 100
--- NOTE | 2017-03-16 08:10 | RAD ---
HISTORY: medical clearance COMPARISON: No prior. FINDINGS: LUNGS: No active pulmonary disease. PLEURA: No significant pleural effusion identified, no pneumothorax apparent. CARDIOVASCULAR: Normal. OSSEOUS STRUCTURES: No significant abnormalities. VISUALIZED UPPER ABDOMEN: Normal. OTHER FINDINGS: None. IMPRESSION: No active disease.
== END 2017-03-15 21:30 | disposition home or self-care (01) ==
LOC: ED 18:17
DX: R55 Syncope and collapse (principal)
CPT/HCPCS: 70450; 71010; 80053; 80320; 80324; 80345; 80346; 80349; 80353; 80358; 80361; 81001; 83735; 83992; 85025; 96360; 99285; J7040